=== PATIENT | male | born 1985 | race African-American/Black ===

== ENCOUNTER 2024-11-16 06:29 | Emergency (ER) | payer OTHER ==
[~2024-11-16] VITALS: Ht 167.6 cm; Wt 78.2 kg
[2024-11-16 07:05] LABS: BASO # 0.1 10^3/uL (0.0-0.2); BASO % 0.9 % (0.0-1.0); EOS # 0.1 10^3/uL (0.0-0.5); EOS % 2.5 % (0.0-3.0); HEMATOCRIT 37.8 % (42.0-52.0); HEMOGLOBIN 12.2 g/dl (13.5-17.5); LYMPH # 2.3 10^3/uL (1.5-5.0); LYMPH % 40.9 % (24.0-44.0); MEAN CORPUSCULAR HEMOGLOBIN 26.3 pg (27.0-33.0); MEAN CORPUSCULAR HGB CONC 32.3 g/dl (32.0-36.5); MEAN CORPUSCULAR VOLUME 81.5 fl (80.0-96.0); MONO # 0.6 10^3/uL (0.0-0.8); MONO % 10.4 % (2.0-8.0); NEUTROPHILS # 2.5 10^3/uL (1.5-8.5); NEUTROPHILS % 44.9 % (36.0-66.0); PLATELET COUNT, AUTOMATED 390 10^3/uL (150-450); RED BLOOD COUNT 4.64 10^6/uL (4.30-6.10); WHITE BLOOD COUNT 5.6 10^3/uL (4.0-10.0)
[2024-11-16 07:31] LABS: CK-MB VALUE MASS 1.6 NG/ML (<3.6)
[2024-11-16 07:33] LABS: ALBUMIN 3.8 G/DL (3.2-5.2); ALKALINE PHOSPHATASE 81 U/L (40-129); ALT/SGPT 16 U/L (7.0-40); AST/SGOT 21 U/L (<34); BILIRUBIN,DIRECT 0.1 MG/DL (<0.4); BILIRUBIN,TOTAL 0.4 MG/DL (0.3-1.2); BLOOD UREA NITROGEN 14 MG/DL (9-23); CARBON DIOXIDE LEVEL 26 MMOL/L (20-31); CHLORIDE LEVEL 106 MMOL/L (98-107); CPK CREATINE PHOSPHOKINASE 335 U/L (46-171); CREATININE FOR GFR 1.08 MG/DL (0.70-1.30); GLOMERULAR FILTRATION RATE > 60.0 (>60); GLUCOSE, FASTING 100 MG/DL (60-100); MB/CK RELATIVE INDEX 0.47 (< OR =4); POTASSIUM SERUM 4.3 MMOL/L (3.5-5.1); SODIUM LEVEL 143 MMOL/L (136-145); TOTAL PROTEIN 7.3 G/DL (5.7-8.2)
[2024-11-16 08:25] LABS: CK-MB VALUE MASS 1.1 NG/ML (<3.6)
[2024-11-16 08:26] LABS: MB/CK RELATIVE INDEX 0.34 (< OR =4)
[2024-11-16 08:30] VITALS: BP 113/70; TEMP 97.1; O2SAT 100
[2024-11-16] MEDS: KETOROLAC 30 MG/ML 1ML VIAL IV ONE (08:41)
[2024-11-16] MEDS ORDERED: KETO10TAB PO (08:53)
== END 2024-11-16 09:00 | disposition home or self-care (01) ==
LOC: M ED 06:29
DX: R07.89 Other chest pain (principal); Z79.2 Long term (current) use of antibiotics
CPT/HCPCS: 71045; 80048; 80076; 82550; 82553; 84484; 85025; 93005; 93041; 94760; 96374; 99285; J1885

== ENCOUNTER 2025-04-11 18:22 | Emergency (ER) | payer OTHER ==
[~2025-04-11] VITALS: Ht 167.6 cm; Wt 78.0 kg
[~2025-04-11 18:22] MED LIST: KETO10TAB PO; METF500T13 PO
[2025-04-11 19:49] LABS: VENOUS BASE EXCESS -7.5 (-2.0-2.0); VENOUS HCO3 18.0 MMOL/L (23.0-27.0); VENOUS O2 SATURATION 75.4 % (60.0-80.0); VENOUS PARTIAL PRESSURE CO2 36.4 mmHg (38.0-50.0); VENOUS PARTIAL PRESSURE O2 42.7 mmHg (30.0-50.0); VENOUS PH 7.311 UNITS (7.330-7.430); VENOUS STANDARD HCO3 18.0 MMOL/L; VENOUS TOTAL CO2 19.1 MMOL/L (24.0-28.0)
[2025-04-11 20:02] LABS: BASO # 0.0 10^3/uL (0.0-0.2); BASO % 0.1 % (0.0-1.0); EOS # 0.0 10^3/uL (0.0-0.5); EOS % 0.0 % (0.0-3.0); LYMPH # 0.7 10^3/uL (1.5-5.0); LYMPH % 9.2 % (24.0-44.0); MONO # 0.1 10^3/uL (0.0-0.8); MONO % 1.4 % (2.0-8.0); NEUTROPHILS # 6.5 10^3/uL (1.5-8.5); NEUTROPHILS % 88.8 % (36.0-66.0); PLATELET COUNT, AUTOMATED 388 10^3/uL (150-450)
[2025-04-11 20:18] LABS: D-DIMER QUANT 0.37 ug/mL (<0.5)
[2025-04-11 20:22] LABS: CK-MB VALUE MASS < 1.0 NG/ML (<3.6)
[2025-04-11 20:22] LABS: ESTIMATED AVERAGE GLUCOSE 126.0 MG/DL (60-110)
[2025-04-11 20:24] LABS: ALT/SGPT 29 U/L (7.0-40); AST/SGOT 29 U/L (<34); CALCIUM LEVEL 9.4 MG/DL (8.5-10.1); CARBON DIOXIDE LEVEL 22 MMOL/L (20-31); CHLORIDE LEVEL 103 MMOL/L (98-107); CHOLESTEROL LEVEL 224 MG/DL (<200); CHOLESTEROL RISK RATIO 4.71 (<5); CREATININE FOR GFR 0.83 MG/DL (0.70-1.30); GLOMERULAR FILTRATION RATE > 90.0 (>60); LDL CHOLESTEROL 158.5 MG/DL (<100); NON-HDL-C 176.5 MG/DL; POTASSIUM SERUM 4.8 MMOL/L (3.5-5.1); SODIUM LEVEL 139 MMOL/L (136-145); TRIGLYCERIDES LEVEL 90 MG/DL (<150)
[2025-04-11 20:25] LABS: FREE T4 1.39 NG/DL (0.89-1.76)
[2025-04-11] MEDS ORDERED: ISOVUE-370 76% 100 ML VIAL As Ordered ONE (20:27)
[2025-04-11 20:44] LABS: CPK CREATINE PHOSPHOKINASE 115 U/L (46-171)
[2025-04-11 20:54] LABS: APPEARANCE, URINE CLEAR (CLEAR); BACTERIA, URINE AUTO NEGATIVE (NEGATIVE); BILIRUBIN, URINE AUTO NEGATIVE (NEGATIVE); BLOOD, URINE BLOOD NEGATIVE (NEGATIVE); GLUCOSE, URINE (UA) AUTO 3+ mg/dL (NEGATIVE); KETONE, URINE AUTO TRACE mg/dL (NEGATIVE); LEUKOCYTE ESTERASE, URINE AUTO NEGATIVE (NEGATIVE); NITRITE, URINE AUTO NEGATIVE (NEGATIVE); PROTEIN, URINE AUTO NEGATIVE (NEGATIVE); RBC, URINE AUTO 0 /HPF (0-3); SPECIFIC GRAVITY URINE AUTO 1.033 (1.002-1.035); SQUAMOUS EPITHELIAL CELL UR AU 0 /HPF (0-6); UROBILINOGEN, URINE AUTO 0.2 mg/dL (0.0-2.0); WBC, URINE AUTO 1 /HPF (0-3)
[2025-04-11 21:25] VITALS: BP 121/60
[2025-04-11] MEDS: METOPROLOL 5 MG/5 ML VIAL IV STA (21:25)
[2025-04-11 21:32] LABS: CK-MB VALUE MASS < 1.0 NG/ML (<3.6)
[2025-04-11 21:33] LABS: CPK CREATINE PHOSPHOKINASE 104 U/L (46-171)
[2025-04-11] MEDS: NS (Normal Saline) 0.9% 1,000 ML IV ONE (22:24)
[2025-04-11] MEDS ORDERED: HOLTER MONITOR XX (22:55)
[2025-04-11 23:15] VITALS: BP 120/56; O2SAT 99
[2025-04-11] MEDS ORDERED: METF500T13 PO (23:22)
[2025-04-11 23:23] VITALS: TEMP 97.8
== END 2025-04-11 23:28 | disposition home or self-care (01) ==
LOC: M ED 18:22
DX: R07.9 Chest pain, unspecified (principal); R00.2 Palpitations; R00.0 Tachycardia, unspecified; E11.9 Type 2 diabetes mellitus without complications; E78.5 Hyperlipidemia, unspecified; E55.9 Vitamin D deficiency, unspecified; Z79.4 Long term (current) use of insulin; Z79.899 Other long term (current) drug therapy
CPT/HCPCS: 71046; 71275; 80048; 80061; 80076; 81001; 82550; 82553; 82803; 83036; 83690; 83880; 84439; 84443; 84484; 85025; 85379; 85730; 87040; 87486; 87581; 87633; 87798; 93005; 93041; 94760; 96361; 96374; 99285; J0616; Q9967

== ENCOUNTER → 2025-05-10 | Outpatient (CLI) | payer OTHER ==
[~2025-05-10] MED LIST changes: +HOLTER MONITOR XX
== END ==
LOC: M EKG 14:14
PROVIDERS: ATTEND Emergency Medicine
DX: R00.2 Palpitations (principal); Z53.9 Procedure and treatment not carried out, unspecified reason

== ENCOUNTER 2025-06-12 13:51 | Inpatient (IN) | payer OTHER ==
[~2025-06-12] VITALS: Ht 167.6 cm; Wt 81.0 kg
[2025-06-12] MEDS ORDERED: SERT25TA21 PO (14:00)
[2025-06-12] MEDS ORDERED: METF850T4 PO (14:00)
[2025-06-12] MEDS ORDERED: ATOR40TA75 PO (14:00)
[2025-06-12] MEDS ORDERED: PROP160C PO (14:00)
[2025-06-12 14:25] LABS: BASO # 0.0 10^3/uL (0.0-0.2); BASO % 0.7 % (0.0-1.0); EOS # 0.1 10^3/uL (0.0-0.5); EOS % 1.9 % (0.0-3.0); LYMPH # 2.1 10^3/uL (1.5-5.0); LYMPH % 38.3 % (24.0-44.0); MONO # 0.6 10^3/uL (0.0-0.8); MONO % 11.5 % (2.0-8.0); NEUTROPHILS # 2.6 10^3/uL (1.5-8.5); NEUTROPHILS % 47.2 % (36.0-66.0); PLATELET COUNT, AUTOMATED 417 10^3/uL (150-450)
[2025-06-12] MEDS: NS (Normal Saline) 0.9% 1,000 ML IV ONE (14:45)
[2025-06-12 14:50] LABS: CK-MB VALUE MASS < 1.0 NG/ML (<3.6)
[2025-06-12 14:52] LABS: CALCIUM LEVEL 8.9 MG/DL (8.5-10.1); CARBON DIOXIDE LEVEL 22 MMOL/L (20-31); CHLORIDE LEVEL 108 MMOL/L (98-107); CREATININE FOR GFR 0.89 MG/DL (0.70-1.30); GLOMERULAR FILTRATION RATE > 90.0 (>60); POTASSIUM SERUM 4.2 MMOL/L (3.5-5.1); SODIUM LEVEL 140 MMOL/L (136-145)
[2025-06-12 14:53] LABS: CPK CREATINE PHOSPHOKINASE 116 U/L (46-171)
[2025-06-12 15:13] LABS: ALT/SGPT 32 U/L (7.0-40); AST/SGOT 31 U/L (<34); MAGNESIUM LEVEL 1.7 MG/DL (1.8-2.4); PHOSPHORUS LEVEL 3.0 MG/DL (2.5-4.9)
[2025-06-12] MEDS: AZITHROMYCIN 250 MG TABLET PO ONE (15:14)
[2025-06-12] MEDS: cefTRIAXone SOD 2 GM in DEXTROSE 5% (D5W) ADV/MINI-BAG 50 ML IV ONE (15:14)
[2025-06-12 15:15] LABS: FREE T4 1.27 NG/DL (0.89-1.76)
[2025-06-12 15:56] LABS: CK-MB VALUE MASS < 1.0 NG/ML (<3.6)
[2025-06-12 15:57] LABS: KETONE, URINE AUTO RFX NEGATIVE (NEGATIVE); LEUKOCYTE ESTERASE UR AUTO RFX NEGATIVE (NEGATIVE); MUCUS, URINE RFX SMALL (NEGATIVE); NITRITE, URINE AUTO RFX NEGATIVE (NEGATIVE); RBC, URINE AUTO RFX 0 /HPF (0-3); SQUAM EPITHELIAL CELL UR AURFX 0 /HPF (0-6); WBC, URINE AUTO RFX 0 /HPF (0-3)
[2025-06-12 15:58] LABS: CPK CREATINE PHOSPHOKINASE 106 U/L (46-171)
[2025-06-12] MEDS: NS (Normal Saline) 0.9% 1,380 ML in IV 1 EA IV ONE (16:33)
[2025-06-12] MEDS: INSULIN LISPRO (NovoLOG) PER UNIT SC SCH ×2 (17:30→21:00)
[2025-06-12] MEDS ORDERED: GLUCAGON INJ 1 MG VIAL SC PRN (17:45)
[2025-06-12] MEDS ORDERED: DEXTROSE 50% 50 ML SYRINGE IV PRN (17:45)
[2025-06-12] MEDS ORDERED: PIPERACILLIN/TAZOBACTAM SOD 3.375 GM in DEXTROSE 5% (D5W) ADV/MINI-BAG 50 ML IV ONE (17:45)
[2025-06-12] MEDS ORDERED: GLUCOSE 4 GM CHEW PO PRN (17:45)
[2025-06-12] MEDS ORDERED: PIPERACILLIN/TAZOBACTAM SOD 3.375 GM in DEXTROSE 5% (D5W) ADV/MINI-BAG 50 ML IV SCH (17:55)
[2025-06-12] MEDS ORDERED: ASPI81TA26 PO (18:18)
[2025-06-12] MEDS ORDERED: ERGO125013 PO (18:18)
[2025-06-12] MEDS ORDERED: AMLO1TAB24 PO (18:18)
[2025-06-12] MEDS ORDERED: NITR0.4S14 SL (18:18)
[2025-06-12] MEDS ORDERED: MELA5TAB44 PO (18:18)
[2025-06-12] MEDS ORDERED: HOME MED LIST COMPLETE! XX SCH (18:20)
[2025-06-12 19:41] LABS: ESTIMATED AVERAGE GLUCOSE 123.0 MG/DL (60-110)
[2025-06-12 19:45] LABS: CK-MB VALUE MASS < 1.0 NG/ML (<3.6)
[2025-06-12 19:51] LABS: CPK CREATINE PHOSPHOKINASE 107 U/L (46-171)
[2025-06-12] MEDS: MAG SULF 1GM/100ML (MAG RUN) 1 GM in IV 1 EA IV ONE (20:10)
[2025-06-12] MEDS: LR 1,000 ML IV SCH (20:12)
[2025-06-12 20:48] VITALS: BP 121/58; TEMP 97.7
[2025-06-12] MEDS: PIPERACILLIN/TAZOBACTAM SOD 4.5 GM in DEXTROSE 5% (D5W) ADV/MINI-BAG 50 ML IV SCH (21:15)
[2025-06-12] MEDS: RAMELTEON 8 MG TAB PO SCH (21:15)
[2025-06-12] MEDS: VANCOMYCIN HCL 1,500 MG, VIAL MATE ADAPTER 1 EACH in NS 500 ML IV ONE (22:02)
[2025-06-12] MEDS: KETOROLAC 30 MG/ML 1 ML VIAL IV ONE (22:46)
[2025-06-13] VITALS (10 sets, daily range): BP systolic 84–108; BP diastolic 46–74; TEMP 97.4–98.3; O2SAT 96–97
[2025-06-13] MEDS ORDERED: VANCOMYCIN HCL 1,000 MG, VIAL MATE ADAPTER 1 EACH in NS 250 ML IV SCH (02:00)
[2025-06-13] MEDS ORDERED: ISOVUE-370 76% 100 ML VIAL As Ordered ONE (04:41)
[2025-06-13] MEDS: VANCOMYCIN HCL 1,000 MG, VIAL MATE ADAPTER 1 EACH in NS 250 ML IV SCH (06:06)
[2025-06-13 06:30] LABS: PLATELET COUNT, AUTOMATED 390 10^3/uL (150-450)
[2025-06-13 06:49] LABS: CALCIUM LEVEL 8.4 MG/DL (8.5-10.1); CARBON DIOXIDE LEVEL 24 MMOL/L (20-31); CHLORIDE LEVEL 104 MMOL/L (98-107); CREATININE FOR GFR 0.92 MG/DL (0.70-1.30); GLOMERULAR FILTRATION RATE > 90.0 (>60); MAGNESIUM LEVEL 1.7 MG/DL (1.8-2.4); POTASSIUM SERUM 4.1 MMOL/L (3.5-5.1); SODIUM LEVEL 138 MMOL/L (136-145)
[2025-06-13] MEDS ORDERED: NS (Normal Saline) 0.9% 1,000 ML IV ONE (08:15)
[2025-06-13] MEDS: SODIUM CHLORIDE 0.9% 1000 ML IV ONE (08:31)
[2025-06-13] MEDS: ATORVASTATIN 20 MG TAB PO SCH (08:46)
[2025-06-13] MEDS ORDERED: PROPRANOLOL 80MG LA CAP PO SCH (09:00)
[2025-06-13] MEDS: ASPIRIN 81 MG CHEWABLE TABLET PO SCH (09:33)
[2025-06-13] MEDS: SERTRALINE HCL 25 MG TABLET PO SCH (09:33)
[2025-06-13] MEDS: ENOXAPARIN 40 MG/0.4 ML SYRINGE (J1650 PER 10MG) SC SCH (09:33)
[2025-06-13 09:57] LABS: ABG BASE EXCESS -1.5 (-2.0-2.0); ABG HCO3 23.1 MMOL/L (22.0-26.0); ABG O2 SATURATION 96.5 % (95.0-99.0); ABG PARTIAL PRESSURE CO2 38.2 mmHg (35.0-45.0); ABG PARTIAL PRESSURE O2 87.9 mmHg (75.0-100.0); ABG STANDARD HCO3 23.2 MMOL/L. (22.0-26.0); ABG TOTAL CO2 24.3 MMOL/L (22.0-29.0); ABG pH (ARTERIAL) 7.399 UNITS (7.350-7.450)
[2025-06-13] MEDS: DOXYCYCLINE HYCLATE 100 MG in DEXTROSE 5% (D5W) MINI-BAG PLU 100 ML IV SCH (14:27)
[2025-06-13 15:26] LABS: CORTISOL AM 8.6 UG/DL (4.3-22.4)
[2025-06-13 15:54] LABS: HIV 1&2 SCREEN NEGATIVE (NEGATIVE)
[2025-06-13] MEDS: MAG SULF 1GM/100ML (MAG RUN) 1 GM in IV 1 EA IV SCH (17:54)
[2025-06-13] MEDS: ACETAMINOPHEN 325 MG TAB PO PRN (18:04)
[2025-06-14 04:57] VITALS: BP 88/55; TEMP 97.5; O2SAT 97
[2025-06-14 06:34] VITALS: BP 88/57
[2025-06-14 07:29] LABS: PLATELET COUNT, AUTOMATED 379 10^3/uL (150-450)
[2025-06-14 07:48] LABS: CALCIUM LEVEL 8.5 MG/DL (8.5-10.1); CARBON DIOXIDE LEVEL 25 MMOL/L (20-31); CHLORIDE LEVEL 107 MMOL/L (98-107); CREATININE FOR GFR 0.93 MG/DL (0.70-1.30); GLOMERULAR FILTRATION RATE > 90.0 (>60); MAGNESIUM LEVEL 1.8 MG/DL (1.8-2.4); POTASSIUM SERUM 4.1 MMOL/L (3.5-5.1); SODIUM LEVEL 139 MMOL/L (136-145)
[2025-06-14 08:54] VITALS: BP 88/58
[2025-06-14] MEDS: NS 500 ML IV ONE (09:23)
[2025-06-14] MEDS: DOXYCYCLINE HYCLATE 100 MG TABLET PO SCH (10:06)
[2025-06-14 10:43] VITALS: BP 106/68
[2025-06-14 12:00] VITALS: BP 112/68; TEMP 97.3; O2SAT 99
[2025-06-14] MEDS ORDERED: METF-839 PO (12:18)
[2025-06-14] MEDS ORDERED: PROP60CA PO (12:18)
== END 2025-06-14 14:24 | disposition home or self-care (01) | DRG 153 ==
LOC: M ED 13:51 → M ED INP 17:06 → M MSPAV 20:48
PROVIDERS: ADMIT Student in an Organized Health Care Education/Training Program; ATTEND Internal Medicine Nephrology
DX: J06.9 Acute upper respiratory infection, unspecified (principal); E11.9 Type 2 diabetes mellitus without complications; E83.42 Hypomagnesemia; I10 Essential (primary) hypertension; E78.5 Hyperlipidemia, unspecified; R01.1 Cardiac murmur, unspecified; R55 Syncope and collapse; R51.9 Headache, unspecified; K76.0 Fatty (change of) liver, not elsewhere classified; K44.9 Diaphragmatic hernia without obstruction or gangrene; I95.89 Other hypotension; F41.9 Anxiety disorder, unspecified; F32.A Depression, unspecified; F43.10 Post-traumatic stress disorder, unspecified; Z79.84 Long term (current) use of oral hypoglycemic drugs; Z79.899 Other long term (current) drug therapy; Z88.7 Allergy status to serum and vaccine